=== PATIENT | female | born 1965 | race African-American/Black ===

== ENCOUNTER 2020-02-27 17:52 | Inpatient (IN) | payer MEDICAID ==
[~2020-02-27] VITALS: Ht 157.5 cm; Wt 54.5 kg
[2020-02-27] MEDS ORDERED: normal saline 1000ML IV soln IVB ONE (18:00)
[2020-02-27] MEDS ORDERED: PHEN100C4 PO (18:03)
[2020-02-27] MEDS ORDERED: LABE200T5 PO (18:03)
--- NOTE | 2020-02-27 18:05 | NUR ---
PT TAKEN TO CT VIA GURNEY BY TECH. JUNIOR AT BEDSIDE.
[2020-02-27 18:34] LABS: BASOPHILS % (AUTO) 0.7 % (0-1); EOSINOPHILS # (AUTO) 0.2 X10'3 (0-0.9); EOSINOPHILS % (AUTO) 2.8 % (0-6); HEMATOCRIT 41.9 % (35.0-45.0); HEMOGLOBIN 13.6 g/dl (12.0-16.0); LYMPHOCYTES # (AUTO) 1.9 X10'3 (1.1-4.8); MEAN CORPUSCULAR HEMOGLOBIN 28.9 PG (27.0-31.0); MEAN CORPUSCULAR HGB CONC 32.6 g/dL (33.0-36.5); MEAN CORPUSCULAR VOLUME 88.6 FL (78-98); MEAN PLATELET VOLUME 9.2 FL (7.4-10.4); NEUTROPHILS # (AUTO) 3.6 X10'3 (1.8-7.7); NEUTROPHILS % (AUTO) 53.5 % (42-75); PLATELET COUNT 184 X10'3 (140-440); RED BLOOD COUNT 4.73 X10'6 (4.20-5.60); RED CELL DISTRIBUTION WIDTH 13.1 % (11.5-14.5); WHITE BLOOD COUNT 6.7 X10'3 (4.5-11.0)
[2020-02-27 18:49] LABS: ALANINE AMINOTRANSFERASE 37 U/L (12-78); ALBUMIN 3.5 G/DL (3.4-5.0); ALBUMIN/GLOBULIN RATIO 0.9 (1.1-1.5); ALKALINE PHOSPHATASE 110 IU/L (46-116); ANION GAP 8 (8-16); ASPARTATE AMINO TRANSFERASE 36 U/L (10-37); BILIRUBIN,TOTAL 0.5 MG/DL (0.1-1.0); BLOOD UREA NITROGEN 13 MG/DL (7-18); BUN/CREATININE RATIO 15.1 (6.6-38.0); CALCIUM 9.1 MG/DL (8.5-10.1); CHLORIDE 106 MMOL/L (99-107); CREATININE 0.86 MG/DL (0.40-0.90); GLUCOSE 83 MG/DL (70-104); POTASSIUM 3.9 MMOL/L (3.5-5.1); SODIUM 144 MMOL/L (135-145); TOTAL CARBON DIOXIDE 29.7 MMOL/L (24-32); TOTAL PROTEIN 7.2 G/DL (6.4-8.2); eGFR 68 ML/MIN
--- NOTE | 2020-02-27 18:53 | NUR ---
Patient laying on gurney, is tearful and mildly confused. Son is at bedside.
[2020-02-27 18:54] LABS: PARTIAL THROMBOPLASTIN TIME 34 SECONDS (22-32)
[2020-02-27 18:56] LABS: CLARITY,URINE CLEAR (Clear); COLOR,URINE YELLOW (Yellow); GLUCOSE, URINE NEGATIVE (Neg); KETONES,URINE TRACE mg/dl (Neg); LEUKOCYTE ESTERASE ,URINE TRACE (Neg); NITRITES, URINE NEGATIVE (Neg); OCCULT BLOOD,URINE NEGATIVE (Neg); PROTEIN,URINE NEGATIVE (Neg)
[2020-02-27 19:02] LABS: UA COLLECTION TYPE STRAIGHT CATH
[2020-02-27 19:05] LABS: BACTERIA,URINE FEW /HPF (Neg); RBC,URINE 0-2 /HPF (0-2); SQUAMOUS EPITHELIAL CELL,UR FEW /LPF (FEW)
[2020-02-27 19:13] LABS: PHENYTOIN (DILANTIN) 51.8 UG/ML (10.0-20.0)
--- NOTE | 2020-02-27 19:47 | NUR ---
YOBANY ASH [phone]
--- NOTE | 2020-02-27 20:46 | NUR ---
Patient up to the bedside commode with assistance due to weakness.
[2020-02-27] MEDS ORDERED: ondansetron/PF 4mg/2ml inj IV PRN (21:45)
[2020-02-27] MEDS ORDERED: acetaminophen 325mg tablet PO PRN (21:45)
[2020-02-27] MEDS ORDERED: mag hydrox/Alum hydrox/simeth 30ml oral suspension PO PRN (21:45)
[2020-02-27] MEDS ORDERED: magnesium hydroxide 30ml (MOM) UD suspension PO PRN (21:45)
[2020-02-27] MEDS ORDERED: dextrose ORAL solution 15 GM/59 ML bottle PO PRN ×2 (21:50)
[2020-02-27] MEDS ORDERED: dextrose 50%-water 50ml dispensing syringe IV PRN ×2 (21:50)
[2020-02-27] MEDS ORDERED: glucagon, human recombinant 1mg kit SUBCUT PRN (21:50)
[2020-02-27] MEDS ORDERED: MESSAGE TO PHARMACY PO ONE (21:50)
[2020-02-27] MEDS ORDERED: insulin Lispro (HumaLOG) vial - multi-dose SQ SCH (21:50)
[2020-02-27] MEDS: normal saline 1000ml 1,000 ML IV SCH (22:12)
--- NOTE | 2020-02-27 22:48 | NUR ---
Patient in room ED 13. I have received report from KEITH Soria in the ER and had the opportunity to ask questions and assume patient care.
[2020-02-27 23:00] VITALS: BP 161/83
--- NOTE | 2020-02-27 23:00 | NUR ---
Patient arrived from the ER and was transferred from [facility] to [facility] bed with mod assistance.
[2020-02-28 02:00] VITALS: BP 167/94
[2020-02-28 06:00] VITALS: BP 150/83
--- NOTE | 2020-02-28 06:18 | NUR ---
Problems reprioritized. Patient report given, questions answered & plan of care reviewed with KEITH Huggins.
[2020-02-28 06:32] LABS: BASOPHILS % (AUTO) 0.7 % (0-1); EOSINOPHILS # (AUTO) 0.2 X10'3 (0-0.9); EOSINOPHILS % (AUTO) 3.8 % (0-6); HEMOGLOBIN 12.8 g/dl (12.0-16.0); LYMPHOCYTES # (AUTO) 1.7 X10'3 (1.1-4.8); LYMPHOCYTES % (AUTO) 33.4 % (21-51); MEAN CORPUSCULAR HEMOGLOBIN 28.9 PG (27.0-31.0); MEAN CORPUSCULAR HGB CONC 32.7 g/dL (33.0-36.5); MEAN CORPUSCULAR VOLUME 88.3 FL (78-98); MEAN PLATELET VOLUME 10.1 FL (7.4-10.4); MONOCYTES # (AUTO) 0.8 X10'3 (0-0.9); MONOCYTES % (AUTO) 15.8 % (2-12); NEUTROPHILS # (AUTO) 2.3 X10'3 (1.8-7.7); NEUTROPHILS % (AUTO) 46.3 % (42-75); PLATELET COUNT 157 X10'3 (140-440); RED BLOOD COUNT 4.42 X10'6 (4.20-5.60); RED CELL DISTRIBUTION WIDTH 13.1 % (11.5-14.5)
[2020-02-28 07:12] LABS: ALANINE AMINOTRANSFERASE 32 U/L (12-78); ALBUMIN 2.9 G/DL (3.4-5.0); ALBUMIN/GLOBULIN RATIO 0.9 (1.1-1.5); ALKALINE PHOSPHATASE 96 IU/L (46-116); ANION GAP 6 (8-16); ASPARTATE AMINO TRANSFERASE 32 U/L (10-37); BILIRUBIN,TOTAL 0.4 MG/DL (0.1-1.0); BLOOD UREA NITROGEN 9 MG/DL (7-18); CALCIUM 8.6 MG/DL (8.5-10.1); CHLORIDE 110 MMOL/L (99-107); CREATININE 0.75 MG/DL (0.40-0.90); GLUCOSE 84 MG/DL (70-104); POTASSIUM 3.7 MMOL/L (3.5-5.1); SODIUM 145 MMOL/L (135-145); TOTAL CARBON DIOXIDE 28.8 MMOL/L (24-32); TOTAL PROTEIN 6.2 G/DL (6.4-8.2); eGFR > 90 ML/MIN
[2020-02-28 07:15] LABS: PHENYTOIN (DILANTIN) 42.4 UG/ML (10.0-20.0)
[2020-02-28 07:23] LABS: TOTAL CELLS COUNTED 100
[2020-02-28 07:24] LABS: ELLIPTOCYTES FEW; PLATELET ESTIMATE NORMAL
[2020-02-28] MEDS: heparin, porcine 5000 units/ml vial SQ SCH ×2 (08:49→20:14)
[2020-02-28] MEDS: labetalol 100mg tablet PO SCH ×2 (08:50→20:13)
[2020-02-28 10:00] VITALS: BP 142/82
[2020-02-28] MEDS ORDERED: pneumococcal 23-VAL P-sac vacc 25 mcg/0.5ml vial IMVAC ONE (10:00)
--- NOTE | 2020-02-28 12:33 | NUR ---
Malnutrition/DM Consults: Pt admit w/ Dilantin toxicity hx T2DM A1C less than 7 and not appropriate for DM ed at this time. Pt has normal strength, no edema/wounds, currently no scaled wt this admit or scaled wt hx. RN reports pt thinner but no visible signs of muscle/fat wasting evident. PO meals pending at this time. At this time pt does not meet minimum malnutrition criteria. Will continue to monitor. Addendum: 02/28/20 at [address] Amended: Links added.
[2020-02-28] MEDS ORDERED: LORazepam 2 mg/ml vial IV PRN (15:15)
[2020-02-28] MEDS ORDERED: LORazepam 0.5 MG tablet PO PRN (15:15)
[2020-02-28] MEDS: normal saline 1000ml 1,000 ML IV SCH (17:44)
[2020-02-28 18:00] VITALS: BP 148/98
[2020-02-28] MEDS: lisinopril 10 MG tablet PO SCH (20:13)
[2020-02-28 22:00] VITALS: BP 163/97
[2020-02-29 06:00] VITALS: BP 150/93
--- NOTE | 2020-02-29 06:37 | NUR ---
REPORT GIVEN TO KEITH LOPEZ.
[2020-02-29 06:49] LABS: BASOPHILS % (AUTO) 0.8 % (0-1); EOSINOPHILS # (AUTO) 0.2 X10'3 (0-0.9); MONOCYTES # (AUTO) 0.7 X10'3 (0-0.9); NEUTROPHILS # (AUTO) 2.6 X10'3 (1.8-7.7)
[2020-02-29 06:51] LABS: EOSINOPHILS % (AUTO) 3.5 % (0-6); HEMATOCRIT 39.2 % (35.0-45.0); HEMOGLOBIN 12.7 g/dl (12.0-16.0); LYMPHOCYTES # (AUTO) 1.6 X10'3 (1.1-4.8); LYMPHOCYTES % (AUTO) 30.8 % (21-51); MEAN CORPUSCULAR HEMOGLOBIN 28.7 PG (27.0-31.0); MEAN CORPUSCULAR HGB CONC 32.3 g/dL (33.0-36.5); MEAN CORPUSCULAR VOLUME 88.9 FL (78-98); MEAN PLATELET VOLUME 10.8 FL (7.4-10.4); MONOCYTES % (AUTO) 13.2 % (2-12); NEUTROPHILS % (AUTO) 51.7 % (42-75); RED BLOOD COUNT 4.41 X10'6 (4.20-5.60)
[2020-02-29 07:06] LABS: PLATELET COUNT 151 X10'3 (140-440)
[2020-02-29 07:19] LABS: ALANINE AMINOTRANSFERASE 31 U/L (12-78); ALBUMIN 2.9 G/DL (3.4-5.0); ALBUMIN/GLOBULIN RATIO 0.9 (1.1-1.5); ALKALINE PHOSPHATASE 93 IU/L (46-116); ANION GAP 7 (8-16); BILIRUBIN,TOTAL 0.4 MG/DL (0.1-1.0); BLOOD UREA NITROGEN 8 MG/DL (7-18); CALCIUM 8.6 MG/DL (8.5-10.1); CHLORIDE 109 MMOL/L (99-107); CREATININE 0.73 MG/DL (0.40-0.90); GLUCOSE 91 MG/DL (70-104); SODIUM 142 MMOL/L (135-145); TOTAL CARBON DIOXIDE 26.4 MMOL/L (24-32); TOTAL PROTEIN 6.2 G/DL (6.4-8.2); eGFR > 90 ML/MIN
[2020-02-29 07:20] LABS: ASPARTATE AMINO TRANSFERASE 38 U/L (10-37); POTASSIUM 4.3 MMOL/L (3.5-5.1)
[2020-02-29 07:23] LABS: PHENYTOIN (DILANTIN) 39.2 UG/ML (10.0-20.0)
[2020-02-29] MEDS: lisinopril 10 MG tablet PO SCH (08:10)
[2020-02-29] MEDS: labetalol 100mg tablet PO SCH ×2 (08:11→20:03)
[2020-02-29] MEDS: heparin, porcine 5000 units/ml vial SQ SCH ×2 (08:13→20:04)
[2020-02-29 10:00] VITALS: BP 123/76
[2020-02-29] MEDS: normal saline 1000ml 1,000 ML IV SCH (13:44)
[2020-02-29 18:00] VITALS: BP 157/91
[2020-02-29 22:00] VITALS: BP 129/84
[2020-03-01 06:00] VITALS: BP 149/83
--- NOTE | 2020-03-01 06:33 | NUR ---
REPORT GIVEN TO KEITH LOPEZ.
--- NOTE | 2020-03-01 06:37 | NUR ---
REPORT GIVEN TO KEITH LOPEZ.
[2020-03-01 07:00] LABS: BASOPHILS % (AUTO) 0.9 % (0-1); EOSINOPHILS # (AUTO) 0.2 X10'3 (0-0.9); EOSINOPHILS % (AUTO) 3.6 % (0-6); HEMOGLOBIN 12.4 g/dl (12.0-16.0); LYMPHOCYTES # (AUTO) 1.4 X10'3 (1.1-4.8); LYMPHOCYTES % (AUTO) 28.3 % (21-51); MEAN CORPUSCULAR HEMOGLOBIN 28.9 PG (27.0-31.0); MEAN CORPUSCULAR HGB CONC 32.6 g/dL (33.0-36.5); MEAN CORPUSCULAR VOLUME 88.5 FL (78-98); MEAN PLATELET VOLUME 10.1 FL (7.4-10.4); MONOCYTES # (AUTO) 0.7 X10'3 (0-0.9); MONOCYTES % (AUTO) 14.1 % (2-12); NEUTROPHILS # (AUTO) 2.5 X10'3 (1.8-7.7); NEUTROPHILS % (AUTO) 53.1 % (42-75); PLATELET COUNT 148 X10'3 (140-440); RED BLOOD COUNT 4.29 X10'6 (4.20-5.60); RED CELL DISTRIBUTION WIDTH 12.9 % (11.5-14.5); WHITE BLOOD COUNT 4.8 X10'3 (4.5-11.0)
[2020-03-01 07:11] LABS: ALANINE AMINOTRANSFERASE 44 U/L (12-78); ALBUMIN 2.9 G/DL (3.4-5.0); ALBUMIN/GLOBULIN RATIO 0.9 (1.1-1.5); ALKALINE PHOSPHATASE 96 IU/L (46-116); ANION GAP 6 (8-16); ASPARTATE AMINO TRANSFERASE 58 U/L (10-37); BILIRUBIN,TOTAL 0.3 MG/DL (0.1-1.0); BLOOD UREA NITROGEN 8 MG/DL (7-18); CALCIUM 8.7 MG/DL (8.5-10.1); CHLORIDE 108 MMOL/L (99-107); CREATININE 0.73 MG/DL (0.40-0.90); GLUCOSE 91 MG/DL (70-104); POTASSIUM 3.7 MMOL/L (3.5-5.1); SODIUM 143 MMOL/L (135-145); TOTAL CARBON DIOXIDE 29.5 MMOL/L (24-32); TOTAL PROTEIN 6.2 G/DL (6.4-8.2); eGFR > 90 ML/MIN
--- NOTE | 2020-03-01 07:54 | NUR ---
PAGER ID: [phone] MESSAGE: [phone] Mora cleared for dc home by PT, order Dilantin level? [id number] Susy
[2020-03-01] MEDS: lisinopril 10 MG tablet PO SCH (08:05)
[2020-03-01] MEDS: labetalol 100mg tablet PO SCH (08:05)
[2020-03-01] MEDS: heparin, porcine 5000 units/ml vial SQ SCH (08:06)
[2020-03-01] MEDS ORDERED: LISI10TA4 PO (08:42)
[2020-03-01 09:55] LABS: PHENYTOIN (DILANTIN) 32.6 UG/ML (10.0-20.0)
[2020-03-01 10:00] VITALS: BP 131/82
[2020-03-01] MEDS ORDERED: METF-950 PO (10:56)
[2020-03-01] MEDS ORDERED: LORA-269 PO (10:58)
--- NOTE | 2020-03-01 10:58 | NUR ---
Called son re patient discharge. Patient has a telephone appointment with [facility]. Explained patient needs followup lab for dilantin level. Do NOT restart medication until pmd states it is safe and they follow her blood levels. Also speak with pmd re: diabetic testing suppies.
== END 2020-03-01 11:30 | disposition home or self-care (01) | DRG 812 ==
LOC: ER 17:53 → ED HOLD 21:44 → ORTHO 4S 22:55
PROVIDERS: ADMIT Internal Medicine; ATTEND Internal Medicine
PROC: 3E0234Z Introduction of Serum, Toxoid and Vaccine into Muscle, Percutaneous Approach (ICD-10-PCS; principal; 2020-02-28)
DX: T42.0X1A Poisoning by hydantoin derivatives, accidental (unintentional), initial encounter (principal); E11.9 Type 2 diabetes mellitus without complications; I10 Essential (primary) hypertension; W18.39XA Other fall on same level, initial encounter; Y93.89 Activity, other specified; Y92.89 Other specified places as the place of occurrence of the external cause; Y99.8 Other external cause status; Z79.84 Long term (current) use of oral hypoglycemic drugs; R27.0 Ataxia, unspecified; Z23 Encounter for immunization
CPT/HCPCS: 36415; 70450; 71045; 80053; 80185; 81001; 82948; 83036; 85025; 85610; 85730; 87081; 87088; 90732; 93005; 96360; 97110; 97116; 97161; 97530; 99285; G0378; J1644; J1815; J7030